=== PATIENT | female | born 1985 | race Hispanic/Latino ===

== ENCOUNTER 2017-04-21 00:32 | Observation (INO) | payer MEDICAID, OTHER ==
[2017-04-21] MEDS ORDERED: Sodium Chloride 0.9% 1,000 ML IV STA (01:05)
--- NOTE | 2017-04-21 01:13 | ED PDOC ---
Arrival/HPI - General Chief Complaint: Abdominal Pain Time Seen by Provider: 04/21/17 00:34 Historian: Patient - History of Present Illness Narrative History of Present Illness (Text): 04/21/17 01:10 32 year old female, whose past medical history includes GERD (on Zantac) and cholecystectomy (5 years ago and reportedly ulcers from scarred tissue s/p surgery), presents to the emergency department complaining of right upper quadrant abdominal pain for the past 3 days. Patient reports she has not felt this pain since her gallbladder diagnosis. Patient reports nausea and vomiting x1 and no bowel movement for the past 2 days, but denies any fever, chills, chest pain, shortness of breath, diarrhea, urinary symptoms, back pain, neck pain, headache, dizziness, or any other complaints. PMD: None Time/Duration: Other (3 days) Symptom Onset: Gradual Symptom Course: Worsening Activities at Onset: Light Context: Home Past Medical History - Provider Review Nursing Documentation Reviewed: Yes - Cardiac Hx Cardiac Disorders: No - Pulmonary Hx Respiratory Disorders: No - Neurological Hx Neurological Disorder: No - HEENT Hx HEENT Disorder: No - Renal Hx Renal Disorder: No - Endocrine/Metabolic Hx Endocrine Disorders: No - Hematological/Oncological Hx Blood Disorders: No - Integumentary Hx Dermatological Disorder: No - Musculoskeletal/Rheumatological Hx Musculoskeletal Disorders: No - Genitourinary/Gynecological Other/Comment: roxanna ovarian cysts - Psychiatric Hx Psychophysiologic Disorder: No Hx Substance Use: Yes (weed occ) - Surgical History Hx Cholecystectomy: Yes Family/Social History - Physician Review Nursing Documentation Reviewed: Yes Family/Social History: No Known Family HX Smoking Status: Light Smoker < 10 Cigarettes Daily Hx Alcohol Use: No Hx Substance Use: Yes (weed occ) Allergies/Home Meds Allergies/Adverse Reactions: Allergies No Known Allergies Allergy (Verified 04/21/17 00:43) Home Medications: Home Meds Medication Instructions Recorded Confirmed Ranitidine HCl [Zantac 300] 300 mg PO BID 04/21/17 04/21/17 Review of Systems - Physician Review All systems were reviewed & negative as marked: Yes - Review of Systems Constitutional: absent: Fevers, Other (Chills) Respiratory: absent: SOB Cardiovascular: absent: Chest Pain Gastrointestinal: Abdominal Pain, Stool Changes, Nausea, Hematochezia. absent: Diarrhea Genitourinary Female: absent: Dysuria, Frequency, Hematuria Neurological: absent: Headache, Dizziness Physical Exam Vital Signs Reviewed: Yes Vital Signs Temp Pulse Resp BP Pulse Ox 04/21/17 03:39 58 L 14 112/51 L 99 04/21/17 00:44 97.9 F 52 L 18 114/88 100 Temperature: Afebrile Blood Pressure: Normal Respiratory Rate: Normal Appearance: Positive for: Well-Appearing, Non-Toxic, Comfortable Pain Distress: None Mental Status: Positive for: Alert and Oriented X 3 - Systems Exam Head: Present: Atraumatic, Normocephalic Pupils: Present: PERRL Extroacular Muscles: Present: EOMI Conjunctiva: Present: Normal Mouth: Present: Moist Mucous Membranes Neck: Present: Normal Range of Motion Respiratory/Chest: Present: Clear to Auscultation, Good Air Exchange. No: Respiratory Distress, Accessory Muscle Use Cardiovascular: Present: Regular Rate and Rhythm, Normal S1, S2. No: Murmurs Abdomen: Present: Tenderness (RUQ tenderness), Normal Bowel Sounds. No: Distention, Peritoneal Signs Back: Present: Normal Inspection Upper Extremity: Present: Normal Inspection. No: Cyanosis, Edema Lower Extremity: Present: Normal Inspection. No: Edema Neurological: Present: GCS=15, CN II-XII Intact, Speech Normal Skin: Present: Warm, Dry, Normal Color. No: Rashes Psychiatric: Present: Alert, Oriented x 3, Normal Insight, Normal Concentration Medical Decision Making ED Course and Treatment: 04/21/17 01:10 Impression: 32 year old female presents complaining of RUQ pain for the past 3 days. Plan: -- Labs -- Pepcid -- IV Fluids -- Zofran Inj -- HCG, Qualit Urine -- Urinalysis -- Abdomen Complete US -- Abdomen & Pelvis CT w/o Contrast -- Reassess and disposition Progress Notes: EXAM: US Abdomen Complete Dictated and Authenticated by: Nesha Olivo MD 04/21/2017 2:42 AM IMPRESSION: Minimal biliary ductal dilatation. This may be secondary to the postcholecystectomy state. Recommend correlation with LFTs for laboratory evidence of biliary obstruction, unless otherwise clinically indicated. Otherwise, no evidence of significant acute process. Mild splenomegaly. Fatty infiltration of the liver. See above for remaining findings. 04/21/17 03:14 Case discussed with Resident and Dr. Nava who is aware and agrees with the plan. Accepts patient into hospitalist service. EXAM: CT Abdomen and Pelvis Without Intravenous Contrast Dictated and Authenticated by: Nesha Olivo MD 04/21/2017 4:21 AM IMPRESSION: - Multiple tiny, round calcified-appearing densities seen in the cholecystectomy bed. These could represent tiny stones in the cystic duct stump. The patient is reportedly post cholecystectomy. This finding could potentially be further evaluated with MRCP. - Mild bladder wall thickening. This is a nonspecific finding, but can be seen with cystitis. Recommend clinical correlation. - Otherwise, no evidence of significant acute process. - See above for remaining findings. - Lab Interpretations Lab Results: 04/21/17 01:50 04/21/17 01:50 Lab Results 04/21/17 01:50: Sodium 140, Potassium 3.7, Chloride 105, Carbon Dioxide 24, Anion Gap 15, BUN 9, Creatinine 0.6 L, Est GFR ( Amer) > 60, Est GFR (Non -Af Amer) > 60, Random Glucose 106, Calcium 9.6, Total Bilirubin 1.8 H, AST 72 H , ALT 81 H, Alkaline Phosphatase 83, Total Protein 8.3, Albumin 4.2, Globulin 4.1, Albumin/Globulin Ratio 1.0 L, Lipase 50 04/21/17 01:50: Urine Color Yellow, Urine Appearance Clear, Urine pH 6.0, Ur Specific [place] 1.025, Urine Protein 30 H, Urine Glucose (UA) Negative, Urine Ketones 40 H, Urine Blood Negative, Urine Nitrate Negative, Urine Bilirubin Negative, Urine Urobilinogen 1.0 H, Ur Leukocyte Esterase Negative, Urine RBC 0 - 2, Urine WBC 0 - 2, Ur Epithelial Cells 3 - 4, Urine Bacteria Few, Urine HCG, Qual Negative 04/21/17 01:50: WBC 7.8, RBC 5.01, Hgb 16.2 H, Hct 44.9, MCV 89.6, MCH 32.3, MCHC 36.1, RDW 13.0, Plt Count 252, MPV 10.1, Gran % 69.5 H, Lymph % (Auto) 22.6 , [place] % (Auto) 6.2 H, Eos % (Auto) 1.3 L, Baso % (Auto) 0.4, Gran # 5.40, Lymph # 1.8, [place] # 0.5, Eos # 0.1, Baso # 0.03 I have reviewed the lab results: Yes - RAD Interpretation Radiology Orders: 04/21/17 01:16 ABDOMEN COMPLETE [US] Stat 04/21/17 03:14 ABD & PELVIS W/O PO OR IV CONT [CT] Stat - Medication Orders Current Medication Orders: Heparin Sodium (Porcine) (Heparin) 5,000 units SC Q8 RANDY PRN Reason: Protocol Last Admin: 04/21/17 21:15 Dose: 5,000 units Subcutaneous Administrations Document 04/21/17 21:15 RR (Rec: 04/21/17 21:15 RR [place] [id number]) Injection Site MAR Injection Site Left Arm Charges for Administration # of Subcutaneous Administrations 1 Hydromorphone HCl (Dilaudid) 0.5 mg IVP Q4H PRN PRN Reason: Pain, severe (8-10) Last Admin: 04/21/17 21:15 Dose: 0.5 mg MAR Pain Assessment Document 04/21/17 21:15 RR (Rec: 04/21/17 21:16 RR [place] [id number]) Pain Reassessment Is this a pain reassessment? No Sleep Is patient sleeping during reassessment? No Presence of Pain Presence of Pain Yes Pain Scale Used Pain Scale Used Numeric Location Upper or Lower Lower Pain Location Body Site Abdomen Description Description Constant Intensity of Pain at present 8 Pain Behavior Guarding Facial Grimacing Alleviating Factors/Management Medication Techniques Alleviating Factors Medication IVP Administration Document 04/21/17 21:15 RR (Rec: 04/21/17 21:16 RR [place] [id number]) Charges for Administration # of IVP Administrations 1 Dextrose/Sodium Chloride (Dextrose 5%/0.9% Ns 1000 Ml) 1,000 mls @ 130 mls/hr IV .[id number] RANDY Last Admin: 04/21/17 21:16 Dose: 130 mls/hr eMAR Start Stop Document 04/21/17 21:16 RR (Rec: 04/21/17 21:16 RR [id number]) Intravenous Solution Start Date 04/21/17 Start Time 21:16 Ketorolac Tromethamine (Toradol) 30 mg IVP Q6H PRN PRN Reason: Pain, moderate (4-7) Last Admin: 04/21/17 19:37 Dose: 30 mg MAR Pain Assessment Document 04/21/17 19:37 VS (Rec: 04/21/17 19:38 VS [place] [id number]) Pain Reassessment Is this a pain reassessment? No Presence of Pain Presence of Pain Yes Pain Scale Used Pain Scale Used Numeric Location Left, Right or Bilateral Right Upper or Lower Upper Pain Location Body Site Abdomen Description Description Constant Intensity of Pain at present 9 Acceptable Level of Pain 2 Pain Behavior Moaning Alleviating Factors/Management Medication Techniques Alleviating Factors Medication IVP Administration Document 04/21/17 19:37 VS (Rec: 04/21/17 19:38 VS [place] [id number]) Charges for Administration # of IVP Administrations 1 Nystatin (Nystop Topical Powder) 0 gm TOP QID PRN PRN Reason: Rash Ondansetron HCl (Zofran Inj) 4 mg IVP Q4H PRN PRN Reason: Nausea/Vomiting Pantoprazole Sodium (Protonix Inj) 40 mg IVP DAILY RANDY Last Admin: 04/21/17 09:00 Dose: 40 mg IVP Administration Document 04/21/17 09:00 VS (Rec: 04/21/17 09:00 VS [place] [id number]) Charges for Administration # of IVP Administrations 1 Discontinued Medications Famotidine (Pepcid) 20 mg IVP STAT STA Stop: 04/21/17 01:06 Last Admin: 04/21/17 01:49 Dose: 20 mg IVP Administration Document 04/21/17 01:49 CNR (Rec: 04/21/17 01:49 CNR [id number]) Charges for Administration # of IVP Administrations 1 Sodium Chloride (Sodium Chloride 0.9%) 1,000 mls @ 1,000 mls/hr IV .Q1H STA Stop: 04/21/17 02:04 Last Admin: 04/21/17 01:49 Dose: 1,000 mls/hr eMAR Start Stop Document 04/21/17 01:49 CNR (Rec: 04/21/17 01:49 CNR [id number]) Intravenous Solution Start Date 04/21/17 Start Time 01:49 Ketorolac Tromethamine (Toradol) 30 mg IVP ONCE ONE Stop: 04/21/17 02:07 Last Admin: 04/21/17 02:19 Dose: 30 mg MAR Pain Assessment Document 04/21/17 02:19 CNR (Rec: 04/21/17 02:19 CNR [id number]) Pain Reassessment Is this a pain reassessment? Yes IVP Administration Document 04/21/17 02:19 CNR (Rec: 04/21/17 02:19 CNR [id number]) Charges for Administration # of IVP Administrations 1 Morphine Sulfate (Morphine) 4 mg IVP STAT STA Stop: 04/21/17 03:11 Last Admin: 04/21/17 03:33 Dose: 4 mg MAR Pain Assessment Document 04/21/17 03:33 CNR (Rec: 04/21/17 03:33 CNR [id number]) Pain Reassessment Is this a pain reassessment? Yes IVP Administration Document 04/21/17 03:33 CNR (Rec: 04/21/17 03:33 CNR [id number]) Charges for Administration # of IVP Administrations 1 Re-Assess: MAR Pain Assessment Document 04/21/17 04:33 FC (Rec: 04/21/17 04:54 FC [email or web address]) Pain Reassessment Is this a pain reassessment? Yes Sleep Is patient sleeping during reassessment? No Presence of Pain Presence of Pain Yes Pain Scale Used Pain Scale Used Numeric Location Left, Right or Bilateral Right Upper or Lower Upper Pain Location Body Site Abdomen Description Description Sharp Intensity of Pain at present 8 Radiation Location ribs Pain Behavior Facial Grimacing Aggravating Factors Exercise/Activity Alleviating Factors/Management Medication Techniques Inactivity Alleviating Factors Medication Pain not relieved and LIP/MD was Yes: MD Amine to see patient, notified awaiting orders Ondansetron HCl (Zofran Inj) 4 mg IVP STAT STA Stop: 04/21/17 01:06 Last Admin: 04/21/17 01:49 Dose: 4 mg IVP Administration Document 04/21/17 01:49 CNR (Rec: 04/21/17 01:49 CNR [id number]) Charges for Administration # of IVP Administrations 1 - Scribe Statement The provider has reviewed the documentation as recorded by the Scribe Deejay Hernandez Provider Scribe Attestation: All medical record entries made by the Scribe were at my direction and personally dictated by me. I have reviewed the chart and agree that the record accurately reflects my personal performance of the history, physical exam, medical decision making, and the department course for this patient. I have also personally directed, reviewed, and agree with the discharge instructions and disposition. Disposition/Present on Arrival - Present on Arrival Any Indicators Present on Arrival: No History of DVT/PE: No History of Uncontrolled Diabetes: No Urinary Catheter: No History of Decub. Ulcer: No History Surgical Site Infection Following: None - Disposition Have Diagnosis and Disposition been Completed?: Yes Diagnosis: Intractable abdominal pain, Common bile duct dilation Disposition: HOSPITALIZED Disposition Time: 03:20 Patient Plan: Observation Patient Problems: Current Active Problems Problem Status Onset Common bile duct dilation Acute Intractable abdominal pain Acute Condition: STABLE
[2017-04-21 02:14] LABS: ALBUMIN 4.2 g/dL (3.0-4.8); CALCIUM 9.6 mg/dL (8.4-10.5); GFR AFRICAN-AMERICAN > 60; GFR NON-AFRICAN AMERICAN > 60; LIPASE 50 U/L (23-300)
[2017-04-21 02:33] LABS: ALT/SGPT 81 U/L (7-56); AST/SGOT 72 U/L (14-36); BLOOD UREA NITROGEN 9 mg/dL (7-21)
[2017-04-21 02:37] LABS: BASO # 0.03 K/mm3 (0.0-2.0); BASO % 0.4 % (0.0-3.0); EOS # 0.1 (0.0-0.7); EOS % 1.3 % (1.5-5.0); GRAN # 5.4 (1.4-6.5); GRAN % 69.5 % (50.0-68.0); HEMOGLOBIN 16.2 g/dL (12.0-16.0); LYMPH # 1.8 (1.2-3.4); LYMPH % 22.6 % (22.0-35.0); MEAN CELL VOLUME 89.6 fl (80.0-105.0); MEAN CORPUSCULAR HEMOGLOBIN 32.3 pg (25.0-35.0); MEAN CORPUSCULAR HGB CONC 36.1 g/dl (31.0-37.0); MEAN PLATELET VOLUME 10.1 fl (7.0-11.0); MONO # 0.5 (0.1-0.6); MONO % 6.2 % (1.0-6.0); RBC 5.01 10^6/uL (3.5-6.1); URINE BILIRUBIN NEGATIVE (NEGATIVE); URINE BLOOD NEGATIVE (NEGATIVE); URINE GLUCOSE (UA) NEGATIVE (NEGATIVE); URINE LEUKOCYTE ESTERASE NEGATIVE Leu/uL (NEGATIVE); URINE NITRATE NEGATIVE (NEGATIVE); URINE PROTEIN 30 mg/dL (<30 mg/dL); WHITE BLOOD COUNT 7.8 10^3/ul (4.5-11.0)
[2017-04-21 02:38] LABS: URINE APPEARANCE CLEAR (CLEAR); URINE COLOR YELLOW (YELLOW)
--- NOTE | 2017-04-21 02:42 | US ---
EXAM: US Abdomen Complete EXAM DATE/TIME: 04/21/2017 1:16 AM CLINICAL HISTORY: 32 years old, female; Pain; Abdominal pain; Epigastric; Prior surgery; Surgery date: 6+ months; Surgery type: Cholecystectomy; Additional info: Upper abdominal pain TECHNIQUE: Real-time ultrasound of the abdomen (complete) with image documentation. COMPARISON: No relevant prior studies available. FINDINGS: Gallbladder: Surgically removed. Common bile duct: Measures 6.3 mm in size (normal less than 6 mm). Liver: Demonstrates mildly increased parenchymal echogenicity, most likely secondary to fatty infiltration. Slightly enlarged, measuring 17 cm in length. Normal flow seen in the main portal vein on color and Doppler imaging. Pancreas: Tail is obscured by gas. Imaged portions appear unremarkable. Right kidney: Somewhat small in size for age, measuring 9.8 cm in length. Otherwise unremarkable in appearance. No evidence of hydronephrosis. Left kidney: Within normal limits in appearance. Measures 11.4 cm in length. No evidence of hydronephrosis. Spleen: Mildly enlarged, measuring 14 cm in length. Aorta: Imaged portions appear unremarkable. IVC: Imaged portions appear unremarkable. IMPRESSION: Minimal biliary ductal dilatation. This may be secondary to the postcholecystectomy state. Recommend correlation with LFTs for laboratory evidence of biliary obstruction, unless otherwise clinically indicated. Otherwise, no evidence of significant acute process. Mild splenomegaly. Fatty infiltration of the liver. See above for remaining findings.
[2017-04-21 02:44] LABS: HCG,QUALITATIVE URINE NEGATIVE (NEGATIVE); URINE RBC 0 - 2 /hpf (0-2)
[2017-04-21 02:45] LABS: URINE BACTERIA FEW (NEG); URINE WBC 0 - 2 /hpf (0-6)
[2017-04-21] MEDS ORDERED: Morphine 4 mg/ml ISec IVP STA (03:10)
--- NOTE | 2017-04-21 04:21 | CT ---
EXAM: CT Abdomen and Pelvis Without Intravenous Contrast EXAM DATE/TIME: 04/21/2017 3:14 AM CLINICAL HISTORY: 32 years old, female; Pain; Abdominal pain; Acute; Additional info: Upper abdominal pain, history of cholecystectomy TECHNIQUE: Axial computed tomography images of the abdomen and pelvis without intravenous contrast. All CT scans at this facility use one or more dose reduction techniques, viz.: automated exposure control; ma/kV adjustment per patient size (including targeted exams where dose is matched to indication; i.e. head); or iterative reconstruction technique. Coronal and sagittal reformatted images were created and reviewed. COMPARISON: Abdominal ultrasound done earlier on the same day, at 01:53 FINDINGS: LOWER THORAX: No infiltrate seen in the lung bases. ABDOMEN: LIVER: No acute abnormality of the liver identified. GALLBLADDER AND BILE DUCTS: Patient is reportedly post cholecystectomy. Best seen on image 49 of series 601, there are multiple tiny, calcific round densities in the region of the cholecystectomy bed, not seen on the recent ultrasound. These could represent tiny stones in the cystic duct stump. Mild biliary ductal dilatation, as seen on the recent ultrasound, with the common bile duct measuring up to about 7 mm in diameter by CT. This may be secondary to the postcholecystectomy state. No radioopaque common bile duct stones are seen. PANCREAS: No CT evidence of acute pancreatitis. SPLEEN: No acute abnormality of the spleen identified. ADRENALS: No acute abnormality of the adrenal glands identified. KIDNEYS: Multiple tiny, nonobstructing bilateral renal stones. No evidence of hydroureteronephrosis. STOMACH AND BOWEL: No acute abnormality of the stomach, small bowel or colon identified. No evidence of bowel obstruction. APPENDIX: Appendix is seen, and is within normal limits in appearance. PELVIS: BLADDER: Mild thickening of the bladder wall. REPRODUCTIVE:No acute abnormality of the reproductive organs is seen. No acute abnormality of the uterus identified. No evidence of large adnexal masses. ABDOMEN and PELVIS: INTRAPERITONEAL SPACE: No evidence of free intraperitoneal air or fluid. BONES/JOINTS: No acute fractures or other acute bony abnormality noted. SOFT TISSUES: No acute abnormality of the visualized soft tissues is seen. VASCULATURE: No evidence of abdominal aortic aneurysm. No evidence of periaortic hemorrhage. LYMPH NODES: No evidence of diffuse lymphadenopathy. IMPRESSION: - Multiple tiny, round calcified-appearing densities seen in the cholecystectomy bed. These could represent tiny stones in the cystic duct stump. The patient is reportedly post cholecystectomy. This finding could potentially be further evaluated with MRCP. - Mild bladder wall thickening. This is a nonspecific finding, but can be seen with cystitis. Recommend clinical correlation. - Otherwise, no evidence of significant acute process. - See above for remaining findings.
[2017-04-21 04:37] VITALS: BMI 28.1
[2017-04-21] MEDS: Dextrose 5%/0.9% NS 1,000 ML IV SCH ×3 (04:59→21:16)
[2017-04-21] MEDS: HYDROmorphone 0.5 mg/0.5 ml ISec IVP PRN ×5 (05:00→21:15)
--- NOTE | 2017-04-21 05:08 | CP.PCM.HP ---
<Sara Bruce - Last Filed: 04/21/17 05:02> History of Present Illness - History of Present Illness History of Present Illness: Sara Teo DO PGY1 - Internal Medicine H&P CC: Abdominal pain HPI: 32yo F with PMH of GERD and s/p cholecystectomy for biliary sludge presents complaining of RUQ abdominal pain. She describes the pain as sharp and colicky, beginning in epigastrum radiating to RUQ and around her side to her right back, intermittently worsens to 10/10 in severity every 5-10 minutes. It feels similar to the pain she used to have prior to her cholecystectomy. Pain started 3 days ago, and has been getting progressively worse. Pain is made worse with meals and lying on her right side. Pain improves very mildly with 800mg ibuprofen, which she has been taking once daily. She denies diarrhea, constipation hematemesis, hemoptysis, hematochezia, melena, fevers, chills, recent travel, sick contacts. Remainder of 12 point ROS was obtained and was negative. PMH: GERD PSH: Cholecystectomy, x2, tubal ligation FHx: Melanoma Soc: 1/2 PPD x12 years; denies alcohol or illicits All: NKDA Present on Admission - Present on Admission Any Indicators Present on Admission: No Past Patient History - Past Social History Smoking Status: Light Smoker < 10 Cigarettes Daily - CARDIAC Hx Cardiac Disorders: No - PULMONARY Hx Respiratory Disorders: No - NEUROLOGICAL Hx Neurological Disorder: No - HEENT Hx HEENT Problems: No - RENAL Hx Chronic Kidney Disease: No - ENDOCRINE/METABOLIC Hx Endocrine Disorders: No - HEMATOLOGICAL/ONCOLOGICAL Hx Blood Disorders: No - INTEGUMENTARY Hx Dermatological Problems: No - MUSCULOSKELETAL/RHEUMATOLOGICAL Hx Musculoskeletal Disorders: No - GASTROINTESTINAL Hx Gastrointestinal Disorders: Yes Hx Gastroesophageal Reflux: Yes Hx Ulcer: Yes - GENITOURINARY/GYNECOLOGICAL Other/Comment: roxanna ovarian cysts - PSYCHIATRIC Hx Psychophysiologic Disorder: No Hx Substance Use: Yes (weed occ) - SURGICAL HISTORY Hx Cholecystectomy: Yes Meds Allergies/Adverse Reactions: Allergies Allergy/AdvReac Type Severity Reaction Status Date / Time No Known Allergies Allergy Verified 04/21/17 00:43 Physical Exam - Constitutional Appears: Non-toxic, In Acute Distress (moderate) - Head Exam Head Exam: ATRAUMATIC, NORMOCEPHALIC - Eye Exam Eye Exam: EOMI, Normal appearance, PERRL. absent: Scleral icterus - ENT Exam ENT Exam: Mucous Membranes Moist - Neck Exam Neck exam: Positive for: Normal Inspection - Respiratory Exam Respiratory Exam: Clear to Auscultation Bilateral, NORMAL BREATHING PATTERN - Cardiovascular Exam Cardiovascular Exam: RRR, +S1, +S2 - GI/Abdominal Exam GI & Abdominal Exam: Hypoactive Bowel Sounds, Soft, Tenderness (RUQ > epigastrum > LUQ; significant tenderness over lower right ribs anteriorly). absent: Distended, Firm, Guarding, Organomegaly, Rebound, Rigid - Extremities Exam Extremities exam: Negative for: calf tenderness, pedal edema - Neurological Exam Neurological exam: Alert, Oriented x3 - Psychiatric Exam Psychiatric exam: Normal Affect, Normal Mood - Skin Skin Exam: Dry, Intact, Normal Color Results - Vital Signs Recent Vital Signs: Last Vital Signs Temp 98.1 F 04/21/17 04:18 Pulse 50 L 04/21/17 04:18 Resp 18 04/21/17 04:18 BP 107/50 L 04/21/17 04:18 Pulse Ox 99 04/21/17 03:39 - Labs Result Diagrams: 04/21/17 01:50 04/21/17 01:50 Assessment & Plan - Assessment and Plan (Free Text) Assessment: 32 yo F with PMH of GERD and s/p cholecystectomy for biliary sludge presents complaining of colicky RUQ abdominal pain x3d, worsening in intensity, associated with one episodes of NBNB vomiting today. Plan RUQ abdominal pain with associated emesis - Likely 2/2 choledocholithiasis vs acute viral hepatitis vs cholangitis - Abd US showed near normal CBD; CT abdomen read as mild dilatation of CBD with multiple tiny stones in cholecystectomy bed, likely in cystic duct - Start PRN zofran for nausea - Start PRN dilaudid 0.5mg Q4h PRN and Toradol 30mg Q6h PRN for pain - Maintain NPO until GI evaluation - Patient currently afebrile, without jaundice, no leukocytosis; unlikely cholangitis; continue to monitor and recheck CBC with AM labs; consider starting empiric antibiotics if patient starts to spike a fever, becomes jaundiced, or wilmer a WBC count - Acute hepatitis panel ordered - GI consult requested, appreciate recs Transaminitis - Mild transaminemia noted on intake labs, with associated RUQ pain; cholestatic picture - Likely 2/2 above - Viral hep panel ordered - Continue to trend; consider further workup pending GI recs GERD - Patient takes Zantac at home - Start IV protonix daily until patient is tolerating PO GI PPx: Protonix DVT PPx: Heparin Patient seen, discussed, and reviewed with attending Dr. Nava <Reid Nava - Last Filed: 04/21/17 06:35> Results - Vital Signs Recent Vital Signs: Last Vital Signs Temp 98.1 F 04/21/17 04:18 Pulse 50 L 04/21/17 04:18 Resp 18 04/21/17 04:18 BP 107/50 L 04/21/17 04:18 Pulse Ox 99 04/21/17 03:39 - Labs Result Diagrams: 04/21/17 01:50 04/21/17 01:50 Attending/Attestation - Attestation I have personally seen and examined this patient.: Yes I have fully participated in the care of the patient.: Yes I have reviewed all pertinent clinical information: Yes Notes (Text): 04/21/17 06:33 Patient was seen when she was in bed # 6 in the ER. Agree with history, physical examination, assessment and plan with following impressions. RUQ pain. Epigastric pain. Vomiting. GERD. History cholecystectomy. History Tubal ligation. History . Hisotor ovarian cyst. Family history of skin cancer.(Mother) Smoker. Alcohol use occasionally. Marijuana user. History of UTI. Overweight. Myopia. Elevated LFT's.
[2017-04-21] MEDS ORDERED: Nystatin 100,000 Units/gm Topical Pow(15 gm) TOP PRN (05:36)
[2017-04-21 07:54] VITALS: RESP 20
[2017-04-21 08:21] LABS: BASO # 0.02 K/mm3 (0.0-2.0); BASO % 0.3 % (0.0-3.0); EOS # 0.3 (0.0-0.7); EOS % 4.1 % (1.5-5.0); GRAN # 3.07 (1.4-6.5); GRAN % 50.7 % (50.0-68.0); LYMPH # 2.3 (1.2-3.4); LYMPH % 37.7 % (22.0-35.0); MEAN CELL VOLUME 90.8 fl (80.0-105.0); MEAN CORPUSCULAR HEMOGLOBIN 31.4 pg (25.0-35.0); MEAN CORPUSCULAR HGB CONC 34.6 g/dl (31.0-37.0); MEAN PLATELET VOLUME 9.7 fl (7.0-11.0); MONO # 0.4 (0.1-0.6); MONO % 7.2 % (1.0-6.0); RBC 4.23 10^6/uL (3.5-6.1); RED CELL DISTRIBUTION WIDTH 13.1 % (11.5-14.5); WHITE BLOOD COUNT 6.1 10^3/ul (4.5-11.0)
[2017-04-21 08:26] LABS: HEMOGLOBIN 13.3 g/dL (12.0-16.0)
[2017-04-21 08:29] LABS: ALBUMIN 3.5 g/dL (3.0-4.8); ALT/SGPT 78 U/L (7-56); AST/SGOT 59 U/L (14-36); BLOOD UREA NITROGEN 8 mg/dL (7-21); CALCIUM 8.7 mg/dL (8.4-10.5); GFR AFRICAN-AMERICAN > 60; GFR NON-AFRICAN AMERICAN > 60; MAGNESIUM 2.4 mg/dL (1.7-2.2)
--- NOTE | 2017-04-21 11:28 | CP.PCM.CON ---
<Og Sheth - Last Filed: 04/21/17 14:32> History of Present Illness - History of Present Illness History of Present Illness: PGY4 Initial GI Consult Gopi Miller is a 32yo F with PMH of GERD and s/p cholecystectomy for biliary sludge presents complaining of RUQ abdominal pain. She describes the pain as sharp and colicky. H notes that it began in epigastrum radiating to RUQ with radiation to her right back. She notes that it has progressively worsened since onset. Aggravating factors: food and he denies any alleviating factors. She notes that It feels similar to the pain she used to have prior to her cholecystectomy. She noes that she may have had a prior ERCP before the lap siomara, but was unaware of the findings or reason. Denies any fever, chills or diaphoresis. She denies diarrhea, constipation hematemesis, hemoptysis, hematochezia, melena, fevers, chills, recent travel, sick contacts. Remainder of 12 point ROS was obtained and was negative. CT abd revealed calcification within or around the cystic duct. Abd U/S revealed a 6.3 CBD. Denies any previous colonoscopy., PMH: GERD PSH: Cholecystectomy, x2, tubal ligation FHx: Melanoma Soc: 1/2 PPD x12 years; denies alcohol or illicits ROS: 12 point ROS was conducted and was neg other than above. Past Patient History - Past Social History Smoking Status: Light Smoker < 10 Cigarettes Daily - CARDIAC Hx Cardiac Disorders: No - PULMONARY Hx Respiratory Disorders: No - NEUROLOGICAL Hx Neurological Disorder: No - HEENT Hx HEENT Problems: No - RENAL Hx Chronic Kidney Disease: No - ENDOCRINE/METABOLIC Hx Endocrine Disorders: No - HEMATOLOGICAL/ONCOLOGICAL Hx Blood Disorders: No - INTEGUMENTARY Hx Dermatological Problems: No - MUSCULOSKELETAL/RHEUMATOLOGICAL Hx Musculoskeletal Disorders: No - GASTROINTESTINAL Hx Gastrointestinal Disorders: Yes Hx Gastroesophageal Reflux: Yes Hx Ulcer: Yes - GENITOURINARY/GYNECOLOGICAL Other/Comment: roxanna ovarian cysts - PSYCHIATRIC Hx Psychophysiologic Disorder: No Hx Substance Use: Yes (weed occ) - SURGICAL HISTORY Hx Cholecystectomy: Yes Meds Allergies/Adverse Reactions: Allergies Allergy/AdvReac Type Severity Reaction Status Date / Time No Known Allergies Allergy Verified 04/21/17 00:43 - Medications Medications: Current Medications Heparin Sodium (Porcine) (Heparin) 5,000 units SC Q8 [facility] PRN Reason: Protocol Last Admin: 04/21/17 08:58 Dose: 5,000 units Hydromorphone HCl (Dilaudid) 0.5 mg IVP Q4H PRN PRN Reason: Pain, severe (8-10) Last Admin: 04/21/17 08:59 Dose: 0.5 mg Dextrose/Sodium Chloride (Dextrose 5%/0.9% Ns 1000 Ml) 1,000 mls @ 130 mls/hr IV .Q7H42M [facility] Last Admin: 04/21/17 04:59 Dose: 130 mls/hr Ketorolac Tromethamine (Toradol) 30 mg IVP Q6H PRN PRN Reason: Pain, moderate (4-7) Nystatin (Nystop Topical Powder) 0 gm TOP QID PRN PRN Reason: Rash Ondansetron HCl (Zofran Inj) 4 mg IVP Q4H PRN PRN Reason: Nausea/Vomiting Pantoprazole Sodium (Protonix Inj) 40 mg IVP DAILY [facility] Last Admin: 04/21/17 09:00 Dose: 40 mg Physical Exam - Constitutional Appears: Well, No Acute Distress - Head Exam Head Exam: ATRAUMATIC, NORMOCEPHALIC - Eye Exam Eye Exam: Normal appearance - ENT Exam ENT Exam: Mucous Membranes Moist - Respiratory Exam Respiratory Exam: Clear to Auscultation Bilateral, NORMAL BREATHING PATTERN. absent: Rales, Rhonchi, Wheezes, Respiratory Distress - Cardiovascular Exam Cardiovascular Exam: REGULAR RHYTHM, +S1, +S2 - GI/Abdominal Exam GI & Abdominal Exam: Guarding, Normal Bowel Sounds, Soft, Tenderness (RUQ). absent: Distended, Hernia - Extremities Exam Extremities exam: Negative for: joint swelling, pedal edema - Neurological Exam Neurological exam: Alert, Oriented x3 - Skin Skin Exam: Dry, Intact, Normal Color, Warm Results - Vital Signs Recent Vital Signs: Last Vital Signs Temp 98.1 F 04/21/17 07:53 Pulse 48 L 04/21/17 07:53 Resp 20 04/21/17 07:53 BP 107/50 L 04/21/17 07:53 Pulse Ox 99 04/21/17 07:53 - Labs Result Diagrams: 04/21/17 08:15 04/21/17 08:15 Labs: Laboratory Results - last 24 hr 04/21/17 04/21/17 08:15 08:15 WBC 6.1 D RBC 4.23 Hgb 13.3 D Hct 38.4 MCV 90.8 MCH 31.4 MCHC 34.6 RDW 13.1 Plt Count 205 MPV 9.7 Gran % 50.7 Lymph % (Auto) 37.7 H Dawes % (Auto) 7.2 H Eos % (Auto) 4.1 Baso % (Auto) 0.3 Gran # 3.07 Lymph # 2.3 Dawes # 0.4 Eos # 0.3 Baso # 0.02 Sodium 142 Potassium 3.6 Chloride 108 H Carbon Dioxide 26 Anion Gap 11 BUN 8 Creatinine 0.7 Est GFR ( Amer) > 60 Est GFR (Non-Af Amer) > 60 Random Glucose 109 Calcium 8.7 Phosphorus 3.7 Magnesium 2.4 H Total Bilirubin 1.4 H AST 59 H ALT 78 H Alkaline Phosphatase 67 Total Protein 6.9 Albumin 3.5 Globulin 3.5 Albumin/Globulin Ratio 1.0 L Assessment & Plan - Assessment and Plan (Free Text) Assessment: Gopi Miller is a 32yo F with PMH of GERD and s/p cholecystectomy for biliary sludge presents complaining of RUQ abdominal pain. R/o cystic duct stone, CBD stone. Elevated LFTs, etiology unknown, r/o infectous etiology and autoimmune, may be 2 /2 cytic duct stones? Abn CT finding of calcification in GB fossa s/p Lap Siomara Plan: -start in full liquid diet -NPO after midnight -Recommend an MRCP -reviewed Abd U/S and CT findings -will order viral hep panel and autoimmune work-up -fractionate T. Roxanna -base on finding will determine if pt need an EUS/ERCP -continue PPI -zofran PRN Will D/W Dr. Hernandez <Mason Hernandez - Last Filed: 04/21/17 14:54> Meds - Medications Medications: Current Medications Heparin Sodium (Porcine) (Heparin) 5,000 units SC Q8 [facility] PRN Reason: Protocol Last Admin: 04/21/17 14:43 Dose: 5,000 units Hydromorphone HCl (Dilaudid) 0.5 mg IVP Q4H PRN PRN Reason: Pain, severe (8-10) Last Admin: 04/21/17 13:09 Dose: 0.5 mg Dextrose/Sodium Chloride (Dextrose 5%/0.9% Ns 1000 Ml) 1,000 mls @ 130 mls/hr IV .Q7H42M [facility] Last Admin: 04/21/17 04:59 Dose: 130 mls/hr Ketorolac Tromethamine (Toradol) 30 mg IVP Q6H PRN PRN Reason: Pain, moderate (4-7) Nystatin (Nystop Topical Powder) 0 gm TOP QID PRN PRN Reason: Rash Ondansetron HCl (Zofran Inj) 4 mg IVP Q4H PRN PRN Reason: Nausea/Vomiting Pantoprazole Sodium (Protonix Inj) 40 mg IVP DAILY [facility] Last Admin: 04/21/17 09:00 Dose: 40 mg Results - Vital Signs Recent Vital Signs: Last Vital Signs Temp 98.1 F 04/21/17 07:53 Pulse 48 L 04/21/17 07:53 Resp 20 04/21/17 07:53 BP 107/50 L 04/21/17 07:53 Pulse Ox 99 04/21/17 07:53 - Labs Result Diagrams: 04/21/17 08:15 04/21/17 08:15 Labs: Laboratory Results - last 24 hr 04/21/17 04/21/17 04/21/17 08:15 08:15 12:30 WBC 6.1 D RBC 4.23 Hgb 13.3 D Hct 38.4 MCV 90.8 MCH 31.4 MCHC 34.6 RDW 13.1 Plt Count 205 MPV 9.7 Gran % 50.7 Lymph % (Auto) 37.7 H Dawes % (Auto) 7.2 H Eos % (Auto) 4.1 Baso % (Auto) 0.3 Gran # 3.07 Lymph # 2.3 Dawes # 0.4 Eos # 0.3 Baso # 0.02 Sodium 142 Potassium 3.6 Chloride 108 H Carbon Dioxide 26 Anion Gap 11 BUN 8 Creatinine 0.7 Est GFR ( Amer) > 60 Est GFR (Non-Af Amer) > 60 Random Glucose 109 Calcium 8.7 Phosphorus 3.7 Magnesium 2.4 H Total Bilirubin 1.4 H Direct Bilirubin 0.3 AST 59 H ALT 78 H Alkaline Phosphatase 67 Total Protein 6.9 Albumin 3.5 Globulin 3.5 Albumin/Globulin Ratio 1.0 L Attending/Attestation - Attestation I have personally seen and examined this patient.: Yes I have fully participated in the care of the patient.: Yes I have reviewed all pertinent clinical information: Yes Notes (Text): 04/21/17 14:53 32 year old female with h/o cholecystectomy admitted with abdominal pain and elevated LFTs. 1. Abdominal pain 2. Elevated lfts Plan: -eval further with MRCP -there is some possible stones in the GB fossa area, but it is unclear / uncertain -recommend eval for chronic liver disease as above -supportive care in the meantime
[2017-04-21] MEDS ORDERED: Gadodiamide 287 MG/ML VIAL (15ML) IV ONE (16:28)
[2017-04-21 17:52] LABS: HEPATITIS B SURFACE AG NEGATIVE (NEGATIVE)
[2017-04-21 17:59] LABS: HEPATITIS A IGM NEGATIVE (NEGATIVE); HEPATITIS B CORE AB Negative (NEGATIVE)
--- NOTE | 2017-04-21 18:56 | MRI ---
PROCEDURE: Magnetic Resonance Cholangiopancreatography HISTORY: Abdominal pain evaluate for cystic duct stone COMPARISON: Comparison is made with the previous CT of the abdomen and pelvis dated 04/21/2017. TECHNIQUE: Multiplanar, multisequence MR images of the abdomen were obtained, including heavily T2 weighted MRCP images of the biliary system. Rotating maximum intensity projection images of the biliary system were generated. FINDINGS: MRCP: The common bile duct is of mildly dilated likely due to prior cholecystectomy. . No evidence of choledocholithiasis. No intrahepatic biliary ductal dilatation. LIVER: There is 1.2 centimeter and 1.3 centimeter hyperintense T2 and hypointense T1 lesion noted in the left liver lobe may represent benign liver cysts. GALLBLADDER: Status post cholecystectomy. No evidence of cystic duct stone SPLEEN: The spleen is prominent in size measures up to 13.1 centimeter in the largest longitudinal diameter PANCREAS: Unremarkable. ADRENALS: Unremarkable. KIDNEYS: Unremarkable. AORTA: No aneurysm. ASCITES: None. OTHER FINDINGS: None. IMPRESSION: No MRCP evidence of stone at the cystic duct. Mildly dilated common bile duct likely due to prior cholecystectomy. No evidence of choledocholithiasis. Mild splenomegaly. Two with defined lesion at the left liver lobe demonstrate hyperintense T2 and hypointense T1 signal may represent benign liver cyst. If clinically warranted further assessment by ultrasound may be obtained.
[2017-04-21 19:17] LABS: HEPATITIS C ANTIBODY Reactive (NEGATIVE)
[2017-04-21 22:29] LABS: HEPATITIS B SURFACE AG NEGATIVE (NEGATIVE)
[2017-04-21 22:34] LABS: HEPATITIS A IGM NEGATIVE (NEGATIVE); HEPATITIS B CORE AB Negative (NEGATIVE)
[2017-04-21 22:48] LABS: HEPATITIS C ANTIBODY Reactive (NEGATIVE)
[2017-04-22] MEDS: HYDROmorphone 0.5 mg/0.5 ml ISec IVP PRN ×3 (00:50→09:23)
[2017-04-22] MEDS: Dextrose 5%/0.9% NS 1,000 ML IV SCH (05:09)
[2017-04-22 07:08] LABS: BASO # 0.02 K/mm3 (0.0-2.0); BASO % 0.4 % (0.0-3.0); EOS # 0.3 (0.0-0.7); EOS % 5.2 % (1.5-5.0); GRAN # 2.39 (1.4-6.5); GRAN % 48.3 % (50.0-68.0); HEMOGLOBIN 12.7 g/dL (12.0-16.0); LYMPH % 40.3 % (22.0-35.0); MEAN CELL VOLUME 90.7 fl (80.0-105.0); MEAN CORPUSCULAR HEMOGLOBIN 31.1 pg (25.0-35.0); MEAN CORPUSCULAR HGB CONC 34.2 g/dl (31.0-37.0); MONO # 0.3 (0.1-0.6); MONO % 5.8 % (1.0-6.0); RBC 4.09 10^6/uL (3.5-6.1); RED CELL DISTRIBUTION WIDTH 13.1 % (11.5-14.5)
[2017-04-22 07:29] LABS: ALBUMIN 3.2 g/dL (3.0-4.8); ALT/SGPT 73 U/L (7-56); AST/SGOT 59 U/L (14-36); BLOOD UREA NITROGEN 6 mg/dL (7-21); CALCIUM 8.4 mg/dL (8.4-10.5); GFR AFRICAN-AMERICAN > 60; GFR NON-AFRICAN AMERICAN > 60; MAGNESIUM 2.2 mg/dL (1.7-2.2)
[2017-04-22 07:56] VITALS: BP 113/64; PULSE 47; TEMP 97.7; O2SAT 95
--- NOTE | 2017-04-22 08:00 | CP.PCM.PN ---
<Og Sheth - Last Filed: 04/22/17 08:00> Subjective - Date & Time of Evaluation Date of Evaluation: 04/22/17 Time of Evaluation: 07:00 - Subjective Subjective: PGY4 GI follow-up Pt seen and examined bedside Still complaining of abd pain in the lower quadrants +BM sipps of liquid last night Denies any nausea or vomiting ROS: 10 point ROS conducted, neg other than above Objective - Vital Signs/Intake and Output Vital Signs (last 24 hours): Temp Pulse Resp BP Pulse Ox 97.7 F 47 L 20 113/64 95 04/22/17 07:55 04/22/17 07:55 04/22/17 07:55 04/22/17 07:55 04/22/17 07:55 Intake and Output: 04/22/17 04/22/17 06:59 18:59 Intake Total 780 Balance 780 - Medications Medications: Current Medications Heparin Sodium (Porcine) (Heparin) 5,000 units SC Q8 [facility] PRN Reason: Protocol Last Admin: 04/22/17 05:09 Dose: 5,000 units Hydromorphone HCl (Dilaudid) 0.5 mg IVP Q4H PRN PRN Reason: Pain, severe (8-10) Last Admin: 04/22/17 05:09 Dose: 0.5 mg Dextrose/Sodium Chloride (Dextrose 5%/0.9% Ns 1000 Ml) 1,000 mls @ 130 mls/hr IV .Q7H42M [facility] Last Admin: 04/22/17 05:09 Dose: 130 mls/hr Ketorolac Tromethamine (Toradol) 30 mg IVP Q6H PRN PRN Reason: Pain, moderate (4-7) Last Admin: 04/21/17 19:37 Dose: 30 mg Nystatin (Nystop Topical Powder) 0 gm TOP QID PRN PRN Reason: Rash Ondansetron HCl (Zofran Inj) 4 mg IVP Q4H PRN PRN Reason: Nausea/Vomiting Pantoprazole Sodium (Protonix Inj) 40 mg IVP DAILY [facility] Last Admin: 04/21/17 09:00 Dose: 40 mg - Labs Labs: 04/22/17 06:50 04/22/17 06:50 - Constitutional Appears: Well, No Acute Distress - Head Exam Head Exam: ATRAUMATIC, NORMOCEPHALIC - Eye Exam Eye Exam: Normal appearance - ENT Exam ENT Exam: Mucous Membranes Moist - Respiratory Exam Respiratory Exam: Clear to Ausculation Bilateral, NORMAL BREATHING PATTERN. absent: Rales, Rhonchi, Wheezes, Respiratory Distress - Cardiovascular Exam Cardiovascular Exam: REGULAR RHYTHM, +S1, +S2 - GI/Abdominal Exam GI & Abdominal Exam: Soft, Tenderness (lower quadrants B/L), Normal Bowel Sounds. absent: Rigid, Organomegaly - Extremities Exam Extremities Exam: absent: Joint Swelling, Pedal Edema - Neurological Exam Neurological Exam: Alert, Awake, Oriented x3 - Psychiatric Exam Psychiatric exam: Normal Affect, Normal Mood - Skin Skin Exam: Dry, Intact, Normal Color, Warm Assessment and Plan - Assessment and Plan (Free Text) Assessment: Gopi Miller is a 32yo F with PMH of GERD and s/p cholecystectomy for biliary sludge presents complaining of RUQ abdominal pain. R/o cystic duct stone, CBD stone. Chronic HCV Elevated LFTs, likely 2/2 Chronic HCV Abd pain, etiology unknown, possible secondary gain? MRCP neg for cystic duct stone s/p Lap Siomara Plan: -advance diet as tolerated -no need for acute GI intervention -Should follow-up with GI as an oupt for HCV eval and management -no signs of cirrhosis -pain management as per primary team -if abd pain persist, can consider a surgical eval will D/W Dr. Hernandez <Mason Hernandez - Last Filed: 04/22/17 14:32> Objective - Vital Signs/Intake and Output Vital Signs (last 24 hours): Temp Pulse Resp BP Pulse Ox 97.7 F 47 L 20 113/64 95 04/22/17 07:55 04/22/17 07:55 04/22/17 07:55 04/22/17 07:55 04/22/17 07:55 Intake and Output: 04/22/17 04/22/17 06:59 18:59 Intake Total 780 Balance 780 - Medications Medications: Current Medications Heparin Sodium (Porcine) (Heparin) 5,000 units SC Q8 [facility] PRN Reason: Protocol Last Admin: 04/22/17 05:09 Dose: 5,000 units Hydromorphone HCl (Dilaudid) 0.5 mg IVP Q4H PRN PRN Reason: Pain, severe (8-10) Last Admin: 04/22/17 09:23 Dose: 0.5 mg Dextrose/Sodium Chloride (Dextrose 5%/0.9% Ns 1000 Ml) 1,000 mls @ 130 mls/hr IV .Q7H42M [facility] Last Admin: 04/22/17 05:09 Dose: 130 mls/hr Ketorolac Tromethamine (Toradol) 30 mg IVP Q6H PRN PRN Reason: Pain, moderate (4-7) Last Admin: 04/21/17 19:37 Dose: 30 mg Nystatin (Nystop Topical Powder) 0 gm TOP QID PRN PRN Reason: Rash Ondansetron HCl (Zofran Inj) 4 mg IVP Q4H PRN PRN Reason: Nausea/Vomiting Pantoprazole Sodium (Protonix Inj) 40 mg IVP DAILY [facility] Last Admin: 04/22/17 09:23 Dose: 40 mg - Labs Labs: 04/22/17 06:50 04/22/17 06:50 Attending/Attestation - Attestation I have personally seen and examined this patient.: Yes I have fully participated in the care of the patient.: Yes I have reviewed all pertinent clinical information, including history, physical exam and plan: Yes Notes (Text): 04/22/17 14:31 32 year old female with h/o cholecystectomy admitted with abdominal pain and elevated LFTs. 1. Abdominal pain 2. Hepatitis C Plan: -MRCP reviewed, no choledocholithiasis or retained stones -Hep C is positive, likely cause of elevated lfts -advised patient to follow up for further evaluation and treatment of hep c -abdominal pain improved -diet as tolerated -ok for discharge from GI standpoint
--- NOTE | 2017-04-22 15:03 | CP.PCM.DIS ---
<Yanely Cyr - Last Filed: 04/22/17 15:11> Provider - Provider Date of Admission: 04/21/17 03:15 Attending physician: Ketan Collazo MD Primary care physician: None, anupama carvajal with [facility] (thru [facility]) Consults: СЕРГЕЙ Hernandez Time Spent in preparation of Discharge (in minutes): 35 Diagnosis - Discharge Diagnosis (1) Biliary sludge Status: Acute (2) GERD (gastroesophageal reflux disease) Status: Acute (3) Hepatitis C Status: Acute Hospital Course - Lab Results Lab Results: Most Recent Lab Values WBC 5.0 10^3/ul (4.5-11.0) 04/22/17 06:50 RBC 4.09 10^6/uL (3.5-6.1) 04/22/17 06:50 Hgb 12.7 g/dL (12.0-16.0) 04/22/17 06:50 Hct 37.1 % (36.0-48.0) 04/22/17 06:50 MCV 90.7 fl (80.0-105.0) 04/22/17 06:50 MCH 31.1 pg (25.0-35.0) 04/22/17 06:50 MCHC 34.2 g/dl (31.0-37.0) 04/22/17 06:50 RDW 13.1 % (11.5-14.5) 04/22/17 06:50 Plt Count 183 10^3/uL (120.0-450.0) 04/22/17 06:50 MPV 10.0 fl (7.0-11.0) 04/22/17 06:50 Gran % 48.3 % (50.0-68.0) L 04/22/17 06:50 Lymph % (Auto) 40.3 % (22.0-35.0) H 04/22/17 06:50 Limestone % (Auto) 5.8 % (1.0-6.0) 04/22/17 06:50 Eos % (Auto) 5.2 % (1.5-5.0) H 04/22/17 06:50 Baso % (Auto) 0.4 % (0.0-3.0) 04/22/17 06:50 Gran # 2.39 (1.4-6.5) 04/22/17 06:50 Lymph # 2.0 (1.2-3.4) 04/22/17 06:50 Limestone # 0.3 (0.1-0.6) 04/22/17 06:50 Eos # 0.3 (0.0-0.7) 04/22/17 06:50 Baso # 0.02 K/mm3 (0.0-2.0) 04/22/17 06:50 Sodium 141 mmol/L (132-148) 04/22/17 06:50 Potassium 3.4 mmol/L (3.6-5.0) L 04/22/17 06:50 Chloride 115 mmol/L (98-107) H 04/22/17 06:50 Carbon Dioxide 20 mmol/L (21-33) L 04/22/17 06:50 Anion Gap 10 (10-20) 04/22/17 06:50 BUN 6 mg/dL (7-21) L 04/22/17 06:50 Creatinine 0.6 mg/dl (0.7-1.2) L 04/22/17 06:50 Est GFR ( Amer) > 60 04/22/17 06:50 Est GFR (Non-Af Amer) > 60 04/22/17 06:50 Random Glucose 99 mg/dL (70-110) 04/22/17 06:50 Calcium 8.4 mg/dL (8.4-10.5) 04/22/17 06:50 Phosphorus 2.5 mg/dL (2.5-4.5) 04/22/17 06:50 Magnesium 2.2 mg/dL (1.7-2.2) 04/22/17 06:50 Total Bilirubin 1.1 mg/dL (0.2-1.3) 04/22/17 06:50 Direct Bilirubin 0.3 mg/dL (0.0-0.4) 04/21/17 12:30 AST 59 U/L (14-36) H 04/22/17 06:50 ALT 73 U/L (7-56) H 04/22/17 06:50 Alkaline Phosphatase 62 U/L (38-126) 04/22/17 06:50 Total Protein 6.5 g/dL (5.8-8.3) 04/22/17 06:50 Albumin 3.2 g/dL (3.0-4.8) 04/22/17 06:50 Globulin 3.3 gm/dL 04/22/17 06:50 Albumin/Globulin Ratio 1.0 (1.1-1.8) L 04/22/17 06:50 Lipase 50 U/L (23-300) 04/21/17 01:50 Urine Color Yellow (YELLOW) 04/21/17 01:50 Urine Appearance Clear (CLEAR) 04/21/17 01:50 Urine pH 6.0 (4.7-8.0) 04/21/17 01:50 Ur Specific Gillett 1.025 (1.005-1.035) 04/21/17 01:50 Urine Protein 30 mg/dL (<30 mg/dL) H 04/21/17 01:50 Urine Glucose (UA) Negative mg/dL (NEGATIVE) 04/21/17 01:50 Urine Ketones 40 mg/dL (NEGATIVE) H 04/21/17 01:50 Urine Blood Negative (NEGATIVE) 04/21/17 01:50 Urine Nitrate Negative (NEGATIVE) 04/21/17 01:50 Urine Bilirubin Negative (NEGATIVE) 04/21/17 01:50 Urine Urobilinogen 1.0 E.U./dL (<1 E.U./dL) H 04/21/17 01:50 Ur Leukocyte Esterase Negative Jorje/uL (NEGATIVE) 04/21/17 01:50 Urine RBC 0 - 2 /hpf (0-2) 04/21/17 01:50 Urine WBC 0 - 2 /hpf (0-6) 04/21/17 01:50 Ur Epithelial Cells 3 - 4 /hpf (0-5) 04/21/17 01:50 Urine Bacteria Few (NEG) 04/21/17 01:50 Urine HCG, Qual Negative (NEGATIVE) 04/21/17 01:50 IgG 1037.1 mg/dL (700.0-1600.0) 04/21/17 12:30 PAULA Screen Negative (Negative) 04/21/17 12:30 Anti-Mitochondrial Ab Negative (Negative) 04/21/17 12:30 Smooth Muscle Ab Titer TEST NOT PERFORMED 04/21/17 12:30 Anti-Smooth Muscle Ab Negative (Negative) 04/21/17 12:30 Hepatitis A IgM Ab Negative (NEGATIVE) 04/21/17 12:30 Hep Bs Antigen Negative (NEGATIVE) 04/21/17 12:30 Hep B Core IgM Ab Negative (NEGATIVE) 04/21/17 12:30 Hepatitis C Antibody Reactive (NEGATIVE) 04/21/17 12:30 - Hospital Course Hospital Course: 32 years old female with PMH of GERD and s/p cholecystectomy (5 years ago) for biliary sludge presents complaining of RUQ abdominal pain. She describes the pain as sharp and colicky, beginning in epigastrum radiating to RUQ and around her side to her right back, intermittently worsens to 10/10 in severity every 5- 10 minutes. It feels similar to the pain she used to have prior to her cholecystectomy. Pain started 3 days ago, and has been getting progressively worse. Pain is made worse with meals and lying on her right side. Pain improves very mildly with 800mg ibuprofen, which she has been taking once daily. She denies diarrhea, constipation hematemesis, hemoptysis, hematochezia, melena, fevers, chills, recent travel, sick contacts. Remainder of 12 point ROS was obtained and was negative. Patient was hemodynamically stable throughout the hospital course. UA was negative for infection. Abdominal US showed some tiny stones in cystic duct; mild CBD dilatation at 6.3 mm. GI did MRCP, which showed no choledocholithiasis. No intrahepatic bile duct dilatation. She had mild elevations in her AST, ALt, found Hepatitis C positive. A viral load was ordered on the day of discharge, to be followed up by [facility] clinic downstairs at [facility]. It seems her abdominal pain was secondary to biliary sludge ( small stones that may have passed) and GERD symptoms. Patient was able to tolerate regular diet before leaving. Pt does not have insurance, CM was involved in the case, [facility] and at [facility] for her hepatitis C evaluation and determining further course of treatment. Patient advised to avoid greasy, spicy, citrus rich foods and to eat small meals. Patient understands further plan well. Discussed with Dr Collazo. Discharge Exam - Additional Findings Additional findings: - Constitutional Appears: Non-toxic, In Acute Distress (moderate) - Head Exam Head Exam: ATRAUMATIC, NORMOCEPHALIC - Eye Exam Eye Exam: EOMI, Normal appearance, PERRL. absent: Scleral icterus - ENT Exam ENT Exam: Mucous Membranes Moist - Neck Exam Neck exam: Positive for: Normal Inspection - Respiratory Exam Respiratory Exam: Clear to Auscultation Bilateral, NORMAL BREATHING PATTERN - Cardiovascular Exam Cardiovascular Exam: RRR, +S1, +S2 - GI/Abdominal Exam GI & Abdominal Exam: Normal BS, soft, nondistended, nontender to palpation. absent: Distended, Firm, Guarding, Organomegaly, Rebound, Rigid - Extremities Exam Extremities exam: Negative for: calf tenderness, pedal edema - Neurological Exam Neurological exam: Alert, Oriented x3 - Psychiatric Exam Psychiatric exam: Normal Affect, Normal Mood - Skin Skin Exam: Dry, Intact, Normal Color Discharge Plan - Discharge Medications Prescriptions: Omeprazole 20 mg PO BID 30 Days tablet. - Follow Up Plan Condition: STABLE Disposition: HOME/ ROUTINE Patient education suggested?: Yes Instructions: Gastritis (DC), Hepatitis C (DC), Acute Abdominal Pain (DC) Additional Instructions: - You applied for [facility] and follow up with [facility] clinic at [facility] at ph# [phone], Ext [phone] for an appointment for your care for newly diagnosed Hepatitis C. You viral load test is done at the hospital here, please tell your doctor at [facility] to follow up results and determine your treatment options. - You can also follow up with [facility] for treatment for Hep C within 1 week. - Take OTC Iburprofen or Tylenol for pain. However, you also have acid reflux disease. So take Omeprazole with Ibuprofen to avoid GI side effects. - Please return to us if any concerns. <Ketan Collazo - Last Filed: 04/22/17 17:54> Provider - Provider Date of Admission: 04/21/17 03:15 Attending physician: Ketan Collazo MD Hospital Course - Lab Results Lab Results: Most Recent Lab Values WBC 5.0 10^3/ul (4.5-11.0) 04/22/17 06:50 RBC 4.09 10^6/uL (3.5-6.1) 04/22/17 06:50 Hgb 12.7 g/dL (12.0-16.0) 04/22/17 06:50 Hct 37.1 % (36.0-48.0) 04/22/17 06:50 MCV 90.7 fl (80.0-105.0) 04/22/17 06:50 MCH 31.1 pg (25.0-35.0) 04/22/17 06:50 MCHC 34.2 g/dl (31.0-37.0) 04/22/17 06:50 RDW 13.1 % (11.5-14.5) 04/22/17 06:50 Plt Count 183 10^3/uL (120.0-450.0) 04/22/17 06:50 MPV 10.0 fl (7.0-11.0) 04/22/17 06:50 Gran % 48.3 % (50.0-68.0) L 04/22/17 06:50 Lymph % (Auto) 40.3 % (22.0-35.0) H 04/22/17 06:50 Limestone % (Auto) 5.8 % (1.0-6.0) 04/22/17 06:50 Eos % (Auto) 5.2 % (1.5-5.0) H 04/22/17 06:50 Baso % (Auto) 0.4 % (0.0-3.0) 04/22/17 06:50 Gran # 2.39 (1.4-6.5) 04/22/17 06:50 Lymph # 2.0 (1.2-3.4) 04/22/17 06:50 Limestone # 0.3 (0.1-0.6) 04/22/17 06:50 Eos # 0.3 (0.0-0.7) 04/22/17 06:50 Baso # 0.02 K/mm3 (0.0-2.0) 04/22/17 06:50 Sodium 141 mmol/L (132-148) 04/22/17 06:50 Potassium 3.4 mmol/L (3.6-5.0) L 04/22/17 06:50 Chloride 115 mmol/L (98-107) H 04/22/17 06:50 Carbon Dioxide 20 mmol/L (21-33) L 04/22/17 06:50 Anion Gap 10 (10-20) 04/22/17 06:50 BUN 6 mg/dL (7-21) L 04/22/17 06:50 Creatinine 0.6 mg/dl (0.7-1.2) L 04/22/17 06:50 Est GFR ( Amer) > 60 04/22/17 06:50 Est GFR (Non-Af Amer) > 60 04/22/17 06:50 Random Glucose 99 mg/dL (70-110) 04/22/17 06:50 Calcium 8.4 mg/dL (8.4-10.5) 04/22/17 06:50 Phosphorus 2.5 mg/dL (2.5-4.5) 04/22/17 06:50 Magnesium 2.2 mg/dL (1.7-2.2) 04/22/17 06:50 Total Bilirubin 1.1 mg/dL (0.2-1.3) 04/22/17 06:50 Direct Bilirubin 0.3 mg/dL (0.0-0.4) 04/21/17 12:30 AST 59 U/L (14-36) H 04/22/17 06:50 ALT 73 U/L (7-56) H 04/22/17 06:50 Alkaline Phosphatase 62 U/L (38-126) 04/22/17 06:50 Total Protein 6.5 g/dL (5.8-8.3) 04/22/17 06:50 Albumin 3.2 g/dL (3.0-4.8) 04/22/17 06:50 Globulin 3.3 gm/dL 04/22/17 06:50 Albumin/Globulin Ratio 1.0 (1.1-1.8) L 04/22/17 06:50 Lipase 50 U/L (23-300) 04/21/17 01:50 Urine Color Yellow (YELLOW) 04/21/17 01:50 Urine Appearance Clear (CLEAR) 04/21/17 01:50 Urine pH 6.0 (4.7-8.0) 04/21/17 01:50 Ur Specific Gillett 1.025 (1.005-1.035) 04/21/17 01:50 Urine Protein 30 mg/dL (<30 mg/dL) H 04/21/17 01:50 Urine Glucose (UA) Negative mg/dL (NEGATIVE) 04/21/17 01:50 Urine Ketones 40 mg/dL (NEGATIVE) H 04/21/17 01:50 Urine Blood Negative (NEGATIVE) 04/21/17 01:50 Urine Nitrate Negative (NEGATIVE) 04/21/17 01:50 Urine Bilirubin Negative (NEGATIVE) 04/21/17 01:50 Urine Urobilinogen 1.0 E.U./dL (<1 E.U./dL) H 04/21/17 01:50 Ur Leukocyte Esterase Negative Jorje/uL (NEGATIVE) 04/21/17 01:50 Urine RBC 0 - 2 /hpf (0-2) 04/21/17 01:50 Urine WBC 0 - 2 /hpf (0-6) 04/21/17 01:50 Ur Epithelial Cells 3 - 4 /hpf (0-5) 04/21/17 01:50 Urine Bacteria Few (NEG) 04/21/17 01:50 Urine HCG, Qual Negative (NEGATIVE) 04/21/17 01:50 IgG 1037.1 mg/dL (700.0-1600.0) 04/21/17 12:30 PAULA Screen Negative (Negative) 04/21/17 12:30 Anti-Mitochondrial Ab Negative (Negative) 04/21/17 12:30 Smooth Muscle Ab Titer TEST NOT PERFORMED 04/21/17 12:30 Anti-Smooth Muscle Ab Negative (Negative) 04/21/17 12:30 Hepatitis A IgM Ab Negative (NEGATIVE) 04/21/17 12:30 Hep Bs Antigen Negative (NEGATIVE) 04/21/17 12:30 Hep B Core IgM Ab Negative (NEGATIVE) 04/21/17 12:30 Hepatitis C Antibody Reactive (NEGATIVE) 04/21/17 12:30 Attending/Attestation - Attestation I have personally seen and examined this patient.: Yes I have fully participated in the care of the patient.: Yes I have reviewed all pertinent clinical information, including history, physical exam and plan: Yes Notes (Text): 04/22/17 17:38 Management plan was discussed in detail with patient Education was provided. 32 year old female with PMH of cholecystectomy was admitted with abdominal pain and elevated LFTs. MRCP reviewed, no choledocholithiasis or retained stones Abdominal pain has improved, LFT are also improved, mild elevated LFT at this are likely due to Hep C Patient epigastric pain is likely due to Peptic ulcer disease, will start on PPI and patient has been advised not to use NSAID Patient is tolerated diet. Patient Hepatitic C Viral load is pending at the time of discharge.She will follow up with [facility] clinic for results.This was discussed in detail with her. Patient was seen and examined with medical claims manager. Agreed with resident assessment and plan.
[2017-04-23 10:26] LABS: CERULOPLASMIN 33 mg/dL (18-53)
== END 2017-04-22 14:55 | disposition home or self-care (01) ==
LOC: ED 00:32 → ERH 03:15 → 3RNO 04:12
PROVIDERS: ADMIT Internal Medicine; ATTEND Internal Medicine
DX: K27.9 Peptic ulcer, site unspecified, unspecified as acute or chronic, without hemorrhage or perforation (principal); B18.2 Chronic viral hepatitis C; K21.9 Gastro-esophageal reflux disease without esophagitis; K76.0 Fatty (change of) liver, not elsewhere classified; F17.210 Nicotine dependence, cigarettes, uncomplicated; Z90.49 Acquired absence of other specified parts of digestive tract; Z80.8 Family history of malignant neoplasm of other organs or systems; Z98.51 Tubal ligation status
CPT/HCPCS: 36415; 74176; 74181; 76700; 80053; 80074; 81001; 82248; 82390; 82784; 83690; 83735; 84100; 84703; 85025; 86039; 86255; 86376; 87521; 96374; 96375; 99284; C9113; G0378; J1170; J1644; J1885; J2270; J2405; J7040; J7042

== ENCOUNTER 2017-08-03 20:42 | Emergency (ER) | payer MEDICAID, OTHER ==
[2017-08-03 20:43] VITALS: BMI 28.1
[2017-08-03 20:50] VITALS: RESP 17; TEMP 98.3
[2017-08-03] MEDS ORDERED: Lidocaine/Prilocaine 2.5%-2.5% Cream(30 gm) TOP ONE (21:58)
--- NOTE | 2017-08-03 22:26 | ED PDOC ---
Arrival/HPI - General Historian: Patient EM Caveat: Acuity of Condition - History of Present Illness Time/Duration: < week Symptom Onset: Gradual Symptom Course: Unchanged, Worsening Quality: Pressure, Tightness, Burning Severity Level: 5 Activities at Onset: Rest Context: Home <Marce Patten - Last Filed: 08/04/17 00:18> <OtonielsteveHong - Last Filed: 08/04/17 05:13> - General Chief Complaint: GI Problem Time Seen by Provider: 08/03/17 21:53 - History of Present Illness Narrative History of Present Illness (Text): 08/03/17 22:21 Pt is a 32 yo female with PMH of hemorrhoids who c/o enlarged, bleeding and painful hemorrhoids for the opast 2 days. Pt says she cannot sit or sometimes even walk because of the pain. She describes seeing streaks of blood on tissue when she wipes. Says she has not had a BM in 2 days bc of the pain she experiences. Denies cp, sob, abdominal pain, fever, n/v/d or any other complaint at this time. (Marce Patten) Past Medical History - Provider Review Nursing Documentation Reviewed: Yes - Travel History Have you recently traveled outside [place] w/in the past 3 mons?: No - Past History Past History: No Previous - Tetanus Immunization Tetanus Immunization: Unknown - Cardiac Hx Cardiac Disorders: No - Pulmonary Hx Respiratory Disorders: No - Neurological Hx Neurological Disorder: No - HEENT Hx HEENT Disorder: No - Renal Hx Renal Disorder: No - Endocrine/Metabolic Hx Endocrine Disorders: No - Hematological/Oncological Hx Blood Disorders: No - Integumentary Hx Dermatological Disorder: No - Musculoskeletal/Rheumatological Hx Musculoskeletal Disorders: No - Gastrointestinal Hx Gastrointestinal Disorders: Yes Hx Gastroesophageal Reflux: Yes Other/Comment: HEMORRHOIDS - Genitourinary/Gynecological Hx Genitourinary Disorders: Yes Other/Comment: ovarian cysts - Psychiatric Hx Psychophysiologic Disorder: No Hx Substance Use: Yes (weed occ) - Surgical History Hx Cholecystectomy: Yes Hx Tubal Ligation: Yes <Marce Patten - Last Filed: 08/04/17 00:18> Family/Social History - Physician Review Nursing Documentation Reviewed: Yes Family/Social History: Unknown Family HX Smoking Status: Light Smoker < 10 Cigarettes Daily Hx Alcohol Use: Yes Frequency of alcohol use: Socially Hx Substance Use: Yes (weed occ) <Marce Patten - Last Filed: 08/04/17 00:18> Allergies/Home Meds <Marce Patten - Last Filed: 08/04/17 00:18> <OtonielsteveHong - Last Filed: 08/04/17 05:13> Allergies/Adverse Reactions: Allergies No Known Allergies Allergy (Verified 08/03/17 20:44) Review of Systems - Review of Systems Constitutional: Normal Eyes: Normal ENT: Normal Respiratory: Normal Cardiovascular: Normal Gastrointestinal: Normal, Constipation (2 days), Other (large, bleednig and painful hemorrhoids) Genitourinary Female: Normal Musculoskeletal: Normal Skin: Normal Neurological: Normal Endocrine: Normal Hemo/Lymphatic: Normal Psychiatric: Normal <Marce Patten - Last Filed: 08/04/17 00:18> Physical Exam Vital Signs Reviewed: Yes Temperature: Afebrile Blood Pressure: Normal Pulse: Regular Respiratory Rate: Normal Appearance: Positive for: Well-Appearing, Non-Toxic, Comfortable Pain Distress: None Mental Status: Positive for: Alert and Oriented X 3 - Systems Exam Head: Present: Atraumatic, Normocephalic Pupils: Present: PERRL Extroacular Muscles: Present: EOMI Conjunctiva: Present: Normal Mouth: Present: Moist Mucous Membranes Neck: Present: Normal Range of Motion Respiratory/Chest: Present: Clear to Auscultation, Good Air Exchange. No: Respiratory Distress, Accessory Muscle Use Cardiovascular: Present: Regular Rate and Rhythm, Normal S1, S2. No: Murmurs Abdomen: No: Tenderness, Distention, Peritoneal Signs Rectal: Present: Rectal Tenderness, Hemorrhoids (lobular anal lesion x 2, non- strangulated or actively bleeding ), Normal Rectal Tone Back: Present: Normal Inspection Upper Extremity: Present: Normal Inspection. No: Cyanosis, Edema Lower Extremity: Present: Normal Inspection. No: Edema Neurological: Present: GCS=15, CN II-XII Intact, Speech Normal Skin: Present: Warm, Dry, Normal Color. No: Rashes Psychiatric: Present: Alert, Oriented x 3, Normal Insight, Normal Concentration <Marce Patten - Last Filed: 08/04/17 00:18> Vital Signs Temp Pulse Resp BP Pulse Ox 08/04/17 00:03 98.3 F 87 17 120/65 98 08/03/17 20:45 98.3 F 90 17 110/76 96 Medical Decision Making <Marce Patten - Last Filed: 08/04/17 00:18> <Hong King - Last Filed: 08/04/17 05:13> ED Course and Treatment: 08/03/17 22:24 Impression Pt is a 32 yo female with PMH of hemorrhoids who c/o enlarged, bleeding and painful hemorrhoids for the past 2 days. Bilateral lobular hemorrhoids, that bleed on pressure; pt very sensitive to touch, no indication of strangulation or necrosis Plan lidocaine and prilocaine TOP STAT assess and dispo Progress note Lidocaine and prilocaine applied; gave some relief Counseled on homecare and follow up with GI for possible surgical management Toradol 30 mg IM given Advised using a donut cushion for now and crushed ice in a bag bowel management with Colace and soft diet with plenty of water intake (Marce Patten) - Medication Orders Current Medication Orders: Discontinued Medications Ketorolac Tromethamine (Toradol) 30 mg IM STAT STA Stop: 08/03/17 23:35 Last Admin: 08/03/17 23:56 Dose: 30 mg MAR Pain Assessment Document 08/03/17 23:56 OCS (Rec: 08/03/17 23:57 [id number] Pain Reassessment Is this a pain reassessment? Yes Sleep Is patient sleeping during reassessment? No Presence of Pain Presence of Pain Yes Description Description Constant Intensity of Pain at present 10 Aggravating Factors ADL's IM Administration Charges Document 08/03/17 23:56 OCS (Rec: 08/03/17 23:57 [id number] Injection Site MAR Injection Site Left Deltoid Charges for Administration # of IM Administrations 1 Lidocaine/Prilocaine (Emla) 1 gm TOP ONCE ONE Stop: 08/03/17 21:59 Last Admin: 08/03/17 22:17 Dose: 1 gm - PA / [employer] / Resident Statement / has reviewed & agrees with the documentation as recorded. <Hong King - Last Filed: 08/04/17 05:13> Disposition/Present on Arrival - Present on Arrival Any Indicators Present on Arrival: Yes History of DVT/PE: No History of Uncontrolled Diabetes: No Urinary Catheter: No History of Decub. Ulcer: No History Surgical Site Infection Following: None - Disposition Have Diagnosis and Disposition been Completed?: Yes Disposition Time: 23:32 Patient Plan: Discharge <Marce Patten - Last Filed: 08/04/17 00:18> <Hong King - Last Filed: 08/04/17 05:13> - Disposition Diagnosis: Hemorrhoids Disposition: HOME/ ROUTINE Condition: STABLE Discharge Instructions (ExitCare): Hemorrhoids (DC) Additional Instructions: Gopi, thank you for letting us take care of you today. Your provider was LIZ Patten. You were treated for hemorrhoids. The emergency medical care you received today was directed at your acute symptoms. If you were prescribed any medication, please fill it and take as directed. It may take several days for your symptoms to resolve. Return to the Emergency Department if your symptoms worsen, do not improve, or if you have any other problems. Please contact your doctor or call one of the physicians/clinics you have been referred to that are listed on the Patient Visit Information form that is included in your discharge packet. Bring any paperwork you were given at discharge with you along with any medications you are taking to your follow up visit. Our treatment cannot replace ongoing medical care by a primary care provider (PCP) outside of the emergency department. Thank you for allowing the [facility] team to be part of your care today. Prescriptions: Docusate Sodium [Colace] 100 mg PO BID 10 Days #20 capsule Hydrocortisone 2.5% (Rectal) [Anusol-HC] 30 applic TX BID 15 Days #1 tube Referrals: Sadi Mariano MD [Staff Provider] - Follow up with primary Forms: [employer] ([place])
[2017-08-04 00:25] VITALS: BP 120/65; PULSE 87; O2SAT 98
== END 2017-08-04 00:03 | disposition home or self-care (01) ==
LOC: ED 20:42
DX: K64.9 Unspecified hemorrhoids (principal)
CPT/HCPCS: 96372; 99283; J1885